=== PATIENT | female | born 1995 | race Caucasian/White ===

== ENCOUNTER 2021-03-01 00:18 | Emergency (ER) | payer OTHER ==
[~2021-03-01] VITALS: Ht 175.3 cm; Wt 81.6 kg
[2021-03-01 00:27] VITALS: BP 136/80
--- NOTE | 2021-03-01 00:34 | NUR ---
PT TAKEN TO BED 2
--- NOTE | 2021-03-01 00:37 | NUR ---
REPORTS ONSET 0900 CRAMPING IN LOWER ABDOMEN. AT APPROX 1200 PAIN MOVED TO TIGHTNESS THROGUHOUT ABDOMEN. TOOK GAS X AND ALKASELTZER AT HOME. APPROX 1500 AFTER A NAP HAD SEVERE PAIN AND VOMITING. LAS BM THIS MORNING, NO DIARRHEA. DENIES ANY PMHX OR ALLERGIES. HAS A BROKEN FOOT AND TAKES 800MG IBUPRFEN Q6H PRESCRIBED BUT HAS NOT TAKEN MEDS IN 4 WEEKS. URINE OBTAINED AT THIS TIME, REPORTS NAUSEA AT THIS TIME. CURRENT ABDOMINAL PAIN RATED 10/10 THROGUHOUT ABDOMEN, AND STABBING PAIN TO R FLANK.
[2021-03-01] MEDS ORDERED: ONDANSETRON 4 MG/2 ML VIAL IVP ONE ×2 (00:45→00:55)
[2021-03-01] MEDS ORDERED: NACL 0.9% 1,000 ML IV SCH (00:45)
--- NOTE | 2021-03-01 00:48 | NUR ---
KALEY KEATING AT BEDSIDE.
[2021-03-01] MEDS ORDERED: MORPHINE SULFATE 2 MG/ML SYR IVP ONE (00:55)
[2021-03-01 01:02] LABS: BASOPHILS % (AUTO) 0.4 % (0.0-2.0); EOSINOPHILS # (AUTO) 0.1 K/uL (0-0.4); EOSINOPHILS % (AUTO) 1.1 % (0.0-4.0); LYMPHOCYTES % (AUTO) 15.1 % (20.5-51.1); MEAN CORPUSCULAR HEMOGLOBIN 31 pg (27-31); MEAN CORPUSCULAR HGB CONC 35 g/dL (33-37); MEAN CORPUSCULAR VOLUME 87.5 fL (80-94); MONOCYTES # (AUTO) 0.4 K/uL (0.8-1.0); MONOCYTES % (AUTO) 5.7 % (1.7-9.3); NEUTROPHILS # (AUTO) 5.4 K/uL (1.8-7.7); NEUTROPHILS % (AUTO) 77.7 % (42.2-75.2); PLATELET COUNT (AUTO) 320 K/uL (140-450); RED BLOOD CELL COUNT(AUTO) 4.57 MIL/uL (4.20-5.40); RED CELL DISTRIBUTION WIDTH 13.2 % (11.6-13.7); WHITE BLOOD COUNT (AUTO) 6.9 K/uL (4.8-10.8)
--- NOTE | 2021-03-01 01:07 | NUR ---
TAKEN TO CT AT THIS TIME.
--- NOTE | 2021-03-01 01:09 | NUR ---
PT RETURN FROM CT
[2021-03-01 01:13] LABS: APPEARANCE,URINE HAZY (CLEAR); BILIRUBIN,URINE 1+ (NEGATIVE); BLOOD, URINE 3+ (NEGATIVE); COLOR,URINE RED (YELLOW); LEUKOCYTE ESTERASE ,URINE TRACE (NEGATIVE); NITRITE, URINE NEGATIVE (NEGATIVE); UGLUCOSE NEGATIVE (NEGATIVE)
[2021-03-01 01:18] LABS: ALBUMIN 4.1 g/dL (3.4-5.0); CREATININE 0.9 mg/dL (0.6-1.3); TOTAL BILIRUBIN 0.6 mg/dL (0.0-1.0)
[2021-03-01 01:32] LABS: RBC,URINE TOO NUMEROUS TO COUN /HPF (0-5); WBC,URINE 0-5 /HPF (0-5)
[2021-03-01] MEDS ORDERED: KETOROLAC 30 MG/ML VIAL IVP ONE (01:35)
[2021-03-01] MEDS ORDERED: NACL 0.9% 1,000 ML IV ONE (01:35)
[2021-03-01] MEDS ORDERED: cefTRIAXone 1,000 MG VIAL ONE (01:52)
[2021-03-01] MEDS ORDERED: KETO10TA2 PO (03:18)
[2021-03-01] MEDS ORDERED: CEPH-588 PO (03:18)
[2021-03-01] MEDS ORDERED: ONDA-188 SL (03:18)
[2021-03-01] MEDS ORDERED: HYDR-5080 PO (03:19)
[2021-03-01 03:39] VITALS: BP 126/77
--- NOTE | 2021-03-01 03:39 | NUR ---
PATIENT CLEARED FOR DISHCARGE AT THIS TIME. ARLYN HAS NO FURTHER COMPLAINTS OR CONCERNS AT THIS TIME FOLLOWING DISHCARGE TEACHING, ADVISED TO FOLLOW UP WITH PCP AND RETURN IF CONDITION WORSEMS.
== END 2021-03-01 03:39 | disposition home or self-care (01) ==
LOC: MED 00:18
DX: N20.1 Calculus of ureter (principal); R11.10 Vomiting, unspecified; F17.210 Nicotine dependence, cigarettes, uncomplicated; Z79.899 Other long term (current) drug therapy
CPT/HCPCS: 36415; 74176; 80053; 81001; 81025; 83605; 83690; 84703; 85025; 87040; 87086; 96365; 96375; 99284; J0696; J1885; J2270; J2405; J7030